=== PATIENT | male | born 1970 | race Caucasian/White ===

== ENCOUNTER 2017-12-18 13:45 | Emergency (ER) | payer OTHER ==
[~2017-12-18] VITALS: Ht 177.8 cm; Wt 109.0 kg
[2017-12-18] MEDS ORDERED: PERCOCET 5/31 TABLET PO (14:36)
[2017-12-18 15:00] VITALS: BP 139/77
== END 2017-12-18 15:01 | disposition home or self-care (01) ==
LOC: EME 13:45
DX: S90.112A Contusion of left great toe without damage to nail, initial encounter (principal); W23.0XXA Caught, crushed, jammed, or pinched between moving objects, initial encounter; Y99.0 Civilian activity done for income or pay
CPT/HCPCS: 73630; 99281; 99284